=== PATIENT | male | born 1990 | race African-American/Black ===

== ENCOUNTER 2017-07-10 15:17 | Emergency (ER) | payer MEDICAID ==
[~2017-07-10] VITALS: Ht 203.2 cm; Wt 114.8 kg
[2017-07-10 18:42] VITALS: BP 123/56
[2017-07-10] MEDS ORDERED: LIDOCAINE 1% HCL (LOCAL ANESTH.) INJ 20ML MDV ONE (18:53)
[2017-07-10] MEDS ORDERED: LIDOCAINE 1% HCL (LOCAL ANESTH.) INJ 20ML MDV IJ ONE (19:15)
[2017-07-10] MEDS ORDERED: BACITRACIN TOP OINT 1 UD PKG TOP ONE (19:15)
[2017-07-10] MEDS ORDERED: TETANUS-DIPTH-ACEL PERTUSSIS 0.5ML SYRG IM ONE (19:30)
== END 2017-07-10 19:47 | disposition home or self-care (01) ==
LOC: ER 15:17
DX: S61.012A Laceration without foreign body of left thumb without damage to nail, initial encounter (principal); F12.10 Cannabis abuse, uncomplicated; W26.8XXA Contact with other sharp object(s), not elsewhere classified, initial encounter; Y93.89 Activity, other specified; Y92.89 Other specified places as the place of occurrence of the external cause; Y99.8 Other external cause status
CPT/HCPCS: 12002; 90471; 90715; 99283; J2001